=== PATIENT | male | born 1985 | race African-American/Black ===

== ENCOUNTER 2020-01-04 16:56 | Emergency (ER) | payer SELFPAY ==
[~2020-01-04] VITALS: Ht 193 cm; Wt 130.0 kg
--- NOTE | 2020-01-04 17:53 | NUR ---
MUSIC GRAPHER: PT TO ROOM AT THIS TIME.
--- NOTE | 2020-01-04 18:01 | NUR ---
ASSUMED CARE OF PATIENT. PATIENT BIB [facility]. PT WAS PLACED ON A LEGAL HOLD FROM [facility]. PT REPORTS HE HAS BEEN OFF OF HIS RISPERIDONE AND FEELING SI. HIS PLAN IS TO CUT HIMSELF. PT REPORTS HE JUST NEEDS TO SPEAK WITH A [employer] SUPERVISOR AND GO BACK TO [facility]. "THE SAID THEY WOULD TAKE ME BACK." SITTER AT DOOR. ROOM SECURE. WILL CONTINUE TO MONITOR.
[2020-01-04 18:33] VITALS: BP 127/72
--- NOTE | 2020-01-04 18:33 | NUR ---
PT TRIAGED, [facility] SENT.
[2020-01-04 18:35] LABS: BASOPHILS # (AUTO) 0.03 x10^3/uL (0-0.1); BASOPHILS % (AUTO) 0 % (0-1); EOSINOPHILS # (AUTO) 0.17 x10^3/uL (0-0.4); EOSINOPHILS % (AUTO) 2 % (1-7); LYMPHOCYTES # (AUTO) 3.35 x10^3/uL (1-3.4); LYMPHOCYTES % (AUTO) 49 % (22-44); MD NO; MEAN CORPUSCULAR HEMOGLOBIN 30.9 pg (27.5-34.5); MEAN CORPUSCULAR HGB CONC 33.3 g/dL (33.2-36.2); MEAN CORPUSCULAR VOLUME 92.6 fL (81-97); MEAN PLATELET VOLUME 8.3 fL (7.4-10.4); MONOCYTES % (AUTO) 9 % (2-9); NEUTROPHILS # (AUTO) 2.76 x10^3/uL (1.8-6.8); NEUTROPHILS % (AUTO) 40 % (42-75); PLATELET COUNT 266 x10^3/uL (130-400); RED BLOOD COUNT 4.44 x10^6/uL (4.38-5.82); RED CELL DISTRIBUTION WIDTH 13.8 % (9.4-14.8)
[2020-01-04 18:49] LABS: MICROSCOPIC NOT IND
[2020-01-04 18:49] LABS: ALANINE AMINOTRANSFERASE 31 U/L (12-78); ALBUMIN 3.5 g/dL (3.4-5.0); ANION GAP 4 mmol/L (5-15); CALCIUM 8.4 mg/dL (8.5-10.1); CHLORIDE 112 mmol/L (98-107); CREATININE 1.16 mg/dL (0.7-1.3)
[2020-01-04 18:51] LABS: ALKALINE PHOSPHATASE 62 U/L (45-117); BILIRUBIN,TOTAL < 0.1 mg/dL (0.2-1.0); SALICYLATE LEVEL < 1.7 mg/dL (2.8-20.0); TOTAL PROTEIN 7.5 g/dL (6.4-8.2)
[2020-01-04 18:52] LABS: CULTURE INDICATED? NO
[2020-01-04 18:57] LABS: AMPHETAMINE SCREEN, URINE Negative (Negative); BARBITURATE SCREEN, URINE Negative (Negative); BENZODIAZEPINE SCREEN, URINE Negative (Negative); CANNABINOID SCREEN, URINE Positive (Negative); COCAINE SCREEN, URINE Negative (Negative); METHADONE SCREEN, URINE Negative (Negative); OPIATE SCREEN, URINE Negative (Negative)
--- NOTE | 2020-01-04 19:19 | NUR ---
REPORT GIVEN TO TATUM PARTIDA
--- NOTE | 2020-01-04 19:38 | NUR ---
PT SLEEPING, NO ACUTE DISTRESS NOTED, RESPIRATIONS EVEN AND UNLABORED. SITTER AT DOORWAY FOR SAFETY MONITORING.
--- NOTE | 2020-01-04 20:40 | NUR ---
TP: PACKET FAXED TO [facility], [facility], AND [facility]
--- NOTE | 2020-01-04 21:08 | NUR ---
PROVIDED PT WITH MEAL. PT IN NO ACUTE DISTRESS, RESTING ON GURNEY. SITTER AT DOORWAY FOR MONITORING.
--- NOTE | 2020-01-04 21:25 | NUR ---
REPORT GIVEN TO MALIA WINN AT [facility]. PER MALIA WINN REQUEST WILL FAX OVER LABS AND URINE TOX SCREEN RESULTS.
--- NOTE | 2020-01-04 22:41 | NUR ---
REPORT GIVEN TO CECELIA FROM [facility]. PT AMBULATED WITH EMS STAFF FOR TRANSPORT TO [facility].
== END 2020-01-04 22:45 ==
LOC: ED 19:57
DX: F32.9 Major depressive disorder, single episode, unspecified (principal); R45.851 Suicidal ideations
CPT/HCPCS: 36415; 80053; 80307; 81003; 85025; 99285